=== PATIENT | female | born 1955 | race Caucasian/White ===

== ENCOUNTER → 2025-03-25 13:13 | Outpatient (REF) | payer BC, SELFPAY | LOC: RAD 13:13 | PROVIDERS: ATTENDING PHYSICIAN Physician Assistant; FAMILY PHYSICIAN Student in an Organized Health Care Education/Training Program | DX: R93.0 Abnormal findings on diagnostic imaging of skull and head, not elsewhere classified (principal) | CPT/HCPCS: 70486 ==